=== PATIENT | female | born 1960 | race Caucasian/White ===

== ENCOUNTER → 2016-11-13 | Outpatient (CLI) | payer OTHER ==
[2015-07-26 06:23] VITALS: BP 87/54
[~2016-11-13] MED LIST: ALPR0.5T6 PO; BUPR150T20 PO; CRESTOR10 MG PO; DOXY100T PO; FISH1CAP PO; FLUT16SP NS; FURO40SO5 PO; HYDR25TA9 PO; LANS15CA78 PO; LORA10TA3 PO; MILK140C PO; MULT-246 PO; POLY17PO29 PO; POTA20TA4 PO; PRED20TA PO; RANI150T2 PO; SENN8.6T61 PO; SPIR25TA3 PO; TIZA4CAP PO; TRAM50TA PO; VITAMIN D
--- NOTE | 2016-11-15 10:23 | RAD ---
DATE: 11/15/2016. EXAM: MAMMO TATIANNA SCREENING BILATERAL. HISTORY: Routine mammographic screening. COMPARISON: 11/10/2015, 11/08/2014, 11/05/2013. FINDINGS: The breast parenchyma shows scattered fibroglandular densities. There is a new nodular density on the right MLO view at the nipple line posteriorly. See annotations. There is no clear correlate on the CC projection. On the left, coarse and scattered calcifications appear benign. There is no suspicious finding. BI-RADS CATEGORY: 0 INCOMPLETE: NEEDS ADDITIONAL IMAGING EVALUATION AND/OR PRIOR MAMMOGRAMS FOR COMPARISON.. RECOMMENDED FOLLOW-UP: ADD ADDITIONAL IMAGING. PQRS compliance statement: Patient information was entered into a reminder system with a target due date (now) for the next mammogram. Mammography is a sensitive method for finding small breast cancers, but it does not detect them all and is not a substitute for careful clinical examination. A negative mammogram does not negate a clinically suspicious finding and should not result in delay in biopsying a clinically suspicious abnormality. "Our facility is accredited by the [employer] Mammography [employer]."
== END | disposition home or self-care (01) ==
LOC: KCIC MAMMO 15:20
PROVIDERS: ATTEND Obstetrics & Gynecology
DX: Z12.31 Encounter for screening mammogram for malignant neoplasm of breast (principal)
CPT/HCPCS: 77063; G0202; 77067

== ENCOUNTER → 2017-11-25 | Outpatient (CLI) | payer OTHER | END | disposition home or self-care (01) | LOC: KCIC MAMMO 09:47 | DX: Z12.31 Encounter for screening mammogram for malignant neoplasm of breast (principal); I10 Essential (primary) hypertension; E78.5 Hyperlipidemia, unspecified; E78.00 Pure hypercholesterolemia, unspecified; E87.6 Hypokalemia; E83.42 Hypomagnesemia; K21.9 Gastro-esophageal reflux disease without esophagitis; F32.9 Major depressive disorder, single episode, unspecified; F41.9 Anxiety disorder, unspecified; Z87.11 Personal history of peptic ulcer disease; Z87.891 Personal history of nicotine dependence | CPT/HCPCS: 77063; 77067 ==

== ENCOUNTER → 2018-11-27 | Outpatient (CLI) | payer OTHER ==
[2015-07-26 06:23] VITALS: BP 87/54
[~2018-11-27] MED LIST changes: +HYDR-2145 PO; -HYDR25TA9 PO; -SPIR25TA3 PO; +SPIR25TA5 PO
--- NOTE | 2018-11-27 20:19 | KCIC ---
Bilateral digital screening mammograms with 3-D tomosynthesis: Reason for examination: Routine screening. Comparison is made to previous studies dated 11/25/2017 and 11/13/2016. Bilateral mammograms in CC and oblique projections were obtained with 2-D imaging and 3-D tomosynthesis imaging on a Siemens Inspiration unit and reviewed on the workstation. Interpretation was made with the benefit of CAD. The skin and nipples show no abnormalities. No abnormal axillary lymph nodes are seen. The breast parenchyma shows scattered fatty and fibroglandular density. (Breast density: Category B.) There continue to be small parenchymal densities in the left breast anteriorly which are stable. There are no new dominant masses, suspicious calcifications or architectural distortion. Impression: No evidence of malignancy. Recommend routine screening. BI-RAD Category 2: Benign. "Our facility is accredited by the [employer] Mammography [employer]." This patient's information has been entered into a reminder system for the patient to be notified with the results of her examination and a target date for the next mammogram. Electronically signed by: Samaria Cisneros MD (11/27/2018 8:16 PM) [id number]
== END | disposition home or self-care (01) ==
LOC: KCIC MAMMO 14:16
PROVIDERS: ATTEND Internal Medicine
DX: Z12.31 Encounter for screening mammogram for malignant neoplasm of breast (principal); N64.89 Other specified disorders of breast
CPT/HCPCS: 77063; 77067

== ENCOUNTER → 2019-11-30 | Outpatient (CLI) | payer OTHER ==
[2015-07-26 06:23] VITALS: BP 87/54
[~2019-11-30] MED LIST changes: -BUPR150T20 PO; +BUPR150T27 PO
--- NOTE | 2019-11-30 13:38 | KCIC ---
CT CALCIUM SCORING dated 11/30/2019 11:00 AM Indication:Screening.Reason: CARDIOVASCULAR SCREENING, HYPERLIPIDEMIA / Spl. Instructions: / History: Past smoker of 32 years.. Comparison: No comparison is available. Technical factors: Computed tomography of the heart was performed with ECG gating, suspended respiration and without the administration of contrast material. Post processing was performed on the 3-D computer workstation using diastolic phase images to measure the amount of coronary vascular calcium. Scoring was aquired using the Agatston Method. One or more of the following individualized dose reduction techniques were utilized for this examination: 1. Automated exposure control 2. Adjustment of the mA and/or kV according to patient size 3. Use of iterative reconstruction technique Results: Heart size within normal limits. Mild ectasia of the ascending thoracic aorta measuring 3.9 cm transverse. Imaged portions of the mediastinum and pulmonary parenchyma otherwise unremarkable. Low-density of the liver consistent with mild fatty infiltration. Coronary arteries: Calcium is absent. Total Agaston calcium score equals 0. Coronary vascular calcium is not detected with this exam. This does not absolutely rule out the presence of atherosclerotic plaque, including unstable plaque, but does imply a very low likelihood of significant luminal obstruction. A negative test may be consistent with a low risk of cardiovascular event in the next 2 to 5 years. Conclusions: Normal study, no coronary artery calcium identified. Recommendations: Healthy lifestyle choices including eating appropriately and exercise are encouraged. Additional supporting information concerning the findings and recommendation contained within this report can be found in the consensus statements on coronary vascular calcium published by the [employer] and [employer] 5 Conference (Circulation 1996; 94: 6405-2323; J Am Evelyn Cardiol 2000; 36: 326-340 and Circulation 2000; 101: 111-116). Electronically signed by: David Em MD (11/30/2019 1:35 PM) [facility]
--- NOTE | 2019-11-30 13:47 | KCIC ---
Bone densitometry Clinical history: 59-year-old female with osteoporosis, postmenopausal. Lumbar spine: L1-L4. Dual energy x-ray absorptiometry of the lumbar spine, reveals a bone mineral density of 1.214 gm/cm2. It is 1.5 standard deviations above the expected young adult normal value (T-score = 1.5 ). At this bone density level, fracture risk is normal. Hip: Left. Dual energy x-ray absorptiometry of the left femoral neck reveals a bone mineral density of 0.982 gm/cm2. It is 0.3 standard deviations above the expected young adult normal value (T-score = 0.3 ). At this bone density level, fracture risk is normal. Impression: 1. Normal bone mineral density of the lumbar spine and hip. Note: Definitions established by the World Health Organization: 1. Normal: T-score is -1.0 or above. 2. Osteopenia: T-score is between -1.0 and -2.5. 3. Osteoporosis: T-score is -2.5 or below. Electronically signed by: Sabas Iverson MD (11/30/2019 1:44 PM) [id number]
--- NOTE | 2019-11-30 18:28 | KCIC ---
Bilateral digital screening mammograms with 3-D tomosynthesis: Reason for examination: Routine screening. Comparison is made to previous studies dated back to 11/10/2015. Bilateral mammograms in CC and oblique projections were obtained with 2-D imaging and 3-D tomosynthesis imaging on a Siemens Inspiration unit and reviewed on the workstation. Interpretation was made with the benefit of CAD. The skin and nipples show no abnormalities. No abnormal axillary lymph nodes are seen. The breast parenchyma shows scattered fatty and fibroglandular density. (Breast density: Category B.) There are no dominant masses, suspicious calcifications or architectural distortion. Benign calcifications are present. Impression: No evidence of malignancy. Recommend routine screening. BI-RAD Category 2: Benign. "Our facility is accredited by the [employer] Mammography [employer]." This patient's information has been entered into a reminder system for the patient to be notified with the results of her examination and a target date for the next mammogram. Electronically signed by: Samaria Cisneros MD (11/30/2019 6:26 PM) [email or web address]
== END | disposition home or self-care (01) ==
LOC: KCIC DEXA 09:55
PROVIDERS: ATTEND Internal Medicine
DX: Z12.31 Encounter for screening mammogram for malignant neoplasm of breast (principal); Z13.6 Encounter for screening for cardiovascular disorders; E78.5 Hyperlipidemia, unspecified; M81.0 Age-related osteoporosis without current pathological fracture
CPT/HCPCS: 75571; 77063; 77067; 77080

== ENCOUNTER → 2020-12-01 | Outpatient (CLI) | payer BC, OTHER ==
[2015-07-26 06:23] VITALS: BP 87/54
[~2020-12-01] MED LIST changes: +LANS15CA73 PO; -LANS15CA78 PO
--- NOTE | 2020-12-01 16:46 | KCIC ---
Bilateral digital screening mammograms with 3-D tomosynthesis: Reason for examination: Routine screening. Comparison is made to previous studies dated back to 11/08/2014. Bilateral mammograms in CC and oblique projections were obtained with 2-D imaging and 3-D tomosynthes is imaging on a Siemens Inspiration unit and reviewed on the workstation. Interpretation was made wit h the benefit of CAD. The skin and nipples show no abnormalities. No abnormal axillary lymph nodes are seen. The breast par enchyma shows scattered fatty and fibroglandular density. (Breast density: Category B.) There are no dominant masses, suspicious calcifications or architectural distortion. Impression: No evidence of malignancy. Recommend routine screening. BI-RAD Category 2: Benign. "Our facility is accredited by the [employer] Mammography [employer]." This patient's information has been entered into a reminder system for the patient to be notified wit h the results of her examination and a target date for the next mammogram. Electronically signed by: Samaria Cisneros MD (12/01/2020 4:43 PM) [email or web address]
== END ==
LOC: KCIC MAMMO 13:47
PROVIDERS: ATTEND Internal Medicine
DX: Z12.31 Encounter for screening mammogram for malignant neoplasm of breast (principal)
CPT/HCPCS: 77063; 77067